=== PATIENT | female | born 1995 | race Caucasian/White ===

== ENCOUNTER 2020-05-26 06:00 | Day surgery (SDC) | payer BC, SELFPAY ==
[~2020-05-26] VITALS: Ht 165.1 cm; Wt 84.4 kg
[2020-05-26 07:23] LABS: HCG,QUAL RESULT NEGATIVE (NEGATIVE)
[2020-05-26] MEDS ORDERED: METOCLOPRAMIDE HCL 10 MG/2 ML VIAL IVP PRN (08:15)
[2020-05-26] MEDS ORDERED: MEPERIDINE HCL/PF 25 MG/ML DISP.SYRIN IVP PRN (08:15)
[2020-05-26] MEDS ORDERED: LR 1,000 ML IV SCH (08:15)
[2020-05-26] MEDS ORDERED: MIDAZOLAM HCL 2 MG/2 ML VIAL (VERSED) IVP PRN (08:15)
[2020-05-26] MEDS ORDERED: HYDROmorphone 1 INJ. 1 MG/ML CARTRIDGE IVP PRN ×2 (08:15)
[2020-05-26] MEDS ORDERED: ONDANSETRON HCL 4 MG/2 ML VIAL IVP PRN (08:15)
[2020-05-26 10:16] VITALS: BP_SYST 112
== END 2020-05-26 10:55 | disposition home or self-care (01) ==
LOC: SDS 06:00 → SMU 06:00 → SDS 10:55
PROVIDERS: ATTEND Otolaryngology
DX: R22.0 Localized swelling, mass and lump, head (principal); D48.7 Neoplasm of uncertain behavior of other specified sites; E66.3 Overweight; Z20.828 Contact with and (suspected) exposure to other viral communicable diseases
CPT/HCPCS: 11440; 12051; 84703; 88304; J7120; U0003; 88305